=== PATIENT | female | born 1955 | race Caucasian/White ===

== ENCOUNTER 2021-02-26 14:32 | Observation (INO) | payer BC ==
[~2021-02-26] VITALS: Ht 160 cm; Wt 81.0 kg
[2021-02-26] MEDS ORDERED: IV NORMAL SALINE 1000ML BAG 1,000 ML IV ONE (15:00)
--- NOTE | 2021-02-26 15:09 | PHYS DOC ---
General Adult EDM: Chief Complaint: DIZZY/LIGHT HEADED HPI: HPI: Patient is a 65 year old female who presents with for last 2 weeks she has been having intermittent dizziness. She states she could be doing anything and she will do so may get dizzy and feel like she is spinning. She denies shortness of breath, chest pain, syncope, abdominal pain, nausea, vomiting, diarrhea, fever, numbness or tingling, focal weakness, recent illness. Patient is a smoker. She has been vaccinated for Covid. She states she takes no medications daily. She has had a cholecystectomy. She states she has not ate any food today because she has not been hungry. She was at work at [employer] before coming here to the hospital. Review of Systems: Review of Systems: Constitutional: Denies fever or chills. [] Eyes: Denies change in visual acuity. [] HENT: Denies nasal congestion or sore throat. [] Respiratory: Denies cough or shortness of breath. [] Cardiovascular: Denies chest pain or edema. [] GI: Denies abdominal pain, nausea, vomiting, bloody stools or diarrhea. [] : Denies dysuria. [] Musculoskeletal: Denies back pain or joint pain. [] Integument: Denies rash. [] Neurologic: + Intermittent headache, denies focal weakness or sensory changes. + Dizziness [] Endocrine: Denies polyuria or polydipsia. [] Lymphatic: Denies swollen glands. [] Psychiatric: Denies depression or anxiety. [] Heart Score: C/O Chest Pain: No Risk Factors: Risk Factors: DM, Current or recent (<one month) smoker, HTN, HLP, family history of CAD, obesity. Risk Scores: Score 0 - 3: 2.5% MACE over next 6 weeks - Discharge Home Score 4 - 6: 20.3% MACE over next 6 weeks - Admit for Clinical Observation Score 7 - 10: 72.7% MACE over next 6 weeks - Early Invasive Strategies Current Medications: Current Medications Medications (Trade) Dose Ordered Sig/[place] Start Time Stop Time Status Last Admin Dose Admin Sodium Chloride 1,000 ml @ 1,000 mls/hr 1X ONCE 02/26/21 15:00 02/26/21 15:59 UNV Physical Exam: PE: Constitutional: Well developed, well nourished, no acute distress, non-toxic appearance. [] HENT: Normocephalic, atraumatic, bilateral external ears normal, oropharynx moist, no oral exudates, nose normal. [] Eyes: PERRLA, EOMI, conjunctiva normal, no discharge. [] Neck: Normal range of motion, no tenderness, supple, no stridor. [] Cardiovascular:Heart rate regular rhythm, no murmur [] Lungs & Thorax: Bilateral breath sounds clear to auscultation [] Abdomen: Bowel sounds normal, soft, no tenderness, no masses, no pulsatile masses. [] Skin: Warm, dry, no erythema, no rash. [] Back: No tenderness, no CVA tenderness. [] Extremities: No tenderness, no cyanosis, no clubbing, ROM intact, no edema. [] Neurologic: Alert and oriented X 3, normal motor function, normal sensory function, no focal deficits noted. [] Psychologic: Affect normal, judgement normal, mood normal. [] Normal physical exam EKG: EK read by Dr. Abarca is sinus rhythm and no STEMI [] Radiology/Procedures: Radiology/Procedures: [] Impression: [address] [address] IMAGING REPORT Signed PATIENT: REYES ZAMBRANO ACCOUNT: [id number] : 1955 LOCATION: ER AGE: 65 SEX: F EXAM STATUS: PRE ER ORD. PHYSICIAN: ZENON LYONS APRN REASON: dizziness PROCEDURE: PORTABLE CHEST 1V XR CHEST 1V INDICATION: dizziness . COMPARISON STUDY: None. FINDINGS: Lungs: Normal lung volume. No pulmonary mass or consolidation. The tracheo bronchial tree and hilar structures are normal. Pleura: No pleural effusion or pneumothorax. Heart and Mediastinum: Cardiomegaly. Atherosclerosis of the thoracic aorta. IMPRESSION: No consolidation. Electronically signed by: Michael Ledesma MD (02/26/2021 3:18 PM) [facility] DICTATED and SIGNED BY: MICHAEL LEDESMA MD DATE: 02/26/21 [id number] [address] IMAGING REPORT Signed PATIENT: REYES ZAMBRANO ACCOUNT: [id number] : 1955 LOCATION: ER AGE: 65 SEX: F EXAM STATUS: PRE ER ORD. PHYSICIAN: ZENON LYONS APRN REASON: dizziness x few weeks, worst today PROCEDURE: CT HEAD WO CONTRAST CT scan of the head without contrast 02/26/2021 Clinical History: Dizziness for several weeks worsening today Technique: Unenhanced, contiguous, 5 mm axial sections were obtained through the head. One or more of the following individualized dose reduction techniques were utilized for this study: 1. Automated exposure control. 2. Adjustment of the mA and/or kV according to patient size. 3. Use of iterative reconstruction technique. Findings: No previous studies are available for comparison. There is generalized parenchymal atrophy. Areas of decreased attenuation are seen within the periventricular and subcortical white matter of both cerebral hemispheres consistent with areas of small vessel ischemic disease. An old appearing area of infarction is seen involving the right occipital lobe. This measures 3.5 cm in size. No acute parenchymal abnormality is seen. No extra- axial fluid collection is noted. No skull fracture is seen. Impression: 1. 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 2. No acute intracranial abnormality is seen. Electronically signed by: Jitendra Canchola MD (02/26/2021 3:33 PM) [id number] DICTATED and SIGNED BY: JITENDRA CANCHOLA MD DATE: 02/26/21 [id number] 0 Course & Med Decision Making: Course & Med Decision Making Pertinent Labs and Imaging studies reviewed. (See chart for details) See HPI. Alert and oriented x4. Ambulatory steady gait. Speaks in full clear sentences. Skin pink warm and dry. Patient currently does not have a primary care provider. She states she just got her insurance back. Orthostatic: Lying 168/77, heart rate 79; sitting 179/84, heart rate 80; standing 148/79, heart rate 84. Patient is given a liter of normal saline in the ED. Moving all extremities. Finger nose finger intact. D-dimer is elevated. CT showed a old infarct. Chest x-ray clear. Patient got up to walk to the bathroom and she stumbled a bit. She states that she was not dizzy at that time. Patient's daughter states that she has not been acting right for the last 2 months and work has been saying that she suddenly stopped wearing make-up and was becoming very forgetful and not acting herself and then when they said something to her she began wearing make-up and that she stopped again but states that she has been having these dizzy spells and just not acting correctly for herself. [] Dragon Disclaimer: Dragon Disclaimer: This electronic medical record was generated, in whole or in part, using a voice recognition dictation system. NIHSS Stroke Scale NIH Stroke Scale: NIH Stroke Scale Response (Comments) Value Level of Consciousness: 0 Alert/Responsive 0 LOC Questions: 0 Answers both correctly 0 LOC Commands: 0 Performs both tasks 0 Best Gaze: 0 Normal 0 Visual: 0 No visual loss 0 Facial Palsy: 0 Normal, symmetrical 0 Motor - Left Arm 0 No drift 0 Motor - Right Arm 0 No drift 0 Motor - Left Leg 0 No drift 0 Motor: Right Leg 0 No drift 0 Limb Ataxia: 0 Absent 0 Sensory: 0 No loss 0 Best Language: 0 Normal 0 Dysathria: 0 Normal 0 Extinction and Inattention: 0 Normal 0 Total 0 Departure Departure Impression: Primary Impression: Dizziness Disposition: ADMITTED INPATIENT Admitting Physician: JENNIFER Condition: STABLE ZENON LYONS APRN Feb 26, 2021 15:09
[2021-02-26 15:12] LABS: BASO # 0.1 x10^3/uL (0.0-0.2); BASO % 1 % (0-3); EOS # 0.3 x10^3/uL (0.0-0.7); EOS % 6 % (0-3); HEMATOCRIT 30.7 % (36.0-47.0); HEMOGLOBIN 10.1 g/dL (12.0-15.5); LYMPH % 17 % (24-48); MEAN CORPUSCULAR HEMOGLOBIN 24 pg (25-35); MEAN CORPUSCULAR HGB CONC 33 g/dL (31-37); MEAN CORPUSCULAR VOLUME 72 fL (79-100); MONO # 0.4 x10^3/uL (0.0-1.1); MONO % 8 % (0-9); NEUT # 3.9 x10^3/uL (1.8-7.7); NEUT % 69 % (31-73); PLATELET COUNT 442 x10^3/uL (140-400); RED BLOOD COUNT 4.27 x10^6/uL (3.50-5.40); RED CELL DISTRIBUTION WIDTH 19.7 % (11.5-14.5); WHITE BLOOD COUNT 5.7 x10^3/uL (4.0-11.0)
--- NOTE | 2021-02-26 15:21 | RAD ---
XR CHEST 1V INDICATION: dizziness . COMPARISON STUDY: None. FINDINGS: Lungs: Normal lung volume. No pulmonary mass or consolidation. The tracheobronchial tree and hilar st ructures are normal. Pleura: No pleural effusion or pneumothorax. Heart and Mediastinum: Cardiomegaly. Atherosclerosis of the thoracic aorta. IMPRESSION: No consolidation. Electronically signed by: Bennett Ledesma MD (02/26/2021 3:18 PM) [facility]
[2021-02-26 15:23] LABS: CALCIUM 8.8 mg/dL (8.5-10.1); CREATININE 1.2 mg/dL (0.6-1.0); GFR 45.1; POTASSIUM 3.9 mmol/L (3.5-5.1)
[2021-02-26 15:29] LABS: ALBUMIN 3.6 g/dL (3.4-5.0); MAGNESIUM 2.2 mg/dL (1.8-2.4); TOTAL BILIRUBIN 0.4 mg/dL (0.2-1.0); TOTAL PROTEIN 7.3 g/dL (6.4-8.2)
--- NOTE | 2021-02-26 15:35 | RAD ---
CT scan of the head without contrast 02/26/2021 Clinical History: Dizziness for several weeks worsening today Technique: Unenhanced, contiguous, 5 mm axial sections were obtained through the head. One or more of the following individualized dose reduction techniques were utilized for this study: 1. Automated exposure control. 2. Adjustment of the mA and/or kV according to patient size. 3. Use of iterative reconstruction technique. Findings: No previous studies are available for comparison. There is generalized parenchymal atrophy. Areas of decreased attenuation are seen within the perivent ricular and subcortical white matter of both cerebral hemispheres consistent with areas of small vess el ischemic disease. An old appearing area of infarction is seen involving the right occipital lobe. This measures 3.5 cm in size. No acute parenchymal abnormality is seen. No extra-axial fluid collecti on is noted. No skull fracture is seen. Impression: 1. 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 2. No acute intracranial abnormality is seen. Electronically signed by: Jitendra Canchola MD (02/26/2021 3:33 PM) [id number]
[2021-02-26 16:18] LABS: ANISOCYTOSIS SLIGHT; HYPOCHROMIA SLIGHT; MICROCYTOSIS MOD; PLT ESTIMATE INCREASED (ADEQUATE)
--- NOTE | 2021-02-26 16:42 | EKG ---
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
--- NOTE | 2021-02-26 17:25 | PDOC1 ---
History and Physical Date of Service: DOS: DATE: 02/26/21 TIME: 17:25 Chief Complaint: Problems: (1) High blood pressure (2) Dizziness Chief Complain: Dizziness History of Present Illness: HPI: Patient is a 65-year-old female presented here today with her daughter with a several month history of dizziness. Patient was at her job at [employer] where she has worked for several years when patient's daughter was contacted by the patient's coworkers due to her complaining of feeling dizzy and lightheaded. Family member thought this was one of the first times this occurred however upon discussing with the patient's coworkers the reported she complains of this multiple times a week for the past 1 to 2 months. Patient reports that the only thing she could pinpoint to her dizziness is that it "might occur when I bend down to pick something up." Other than that she cannot elaborate much else. Patient's coworkers also have noted she will sometimes come to work appearing very unkempt. Patient denies any associated symptoms with the dizziness. She did have 1 urinary incontinence episode a few weeks ago at work. Incidentally around the time patient's symptoms started her ex- suddenly . She reported family members she is not troubled by this. Patient denies any medical history or daily medications but also has not seen a physician in several years. On arrival to emergency room patient notably hypertensive. 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 Labs notable for mild ALESHIA. No troponin elevation, EKG appears normal. Admit Past Medical/Surgical History: PMH/PSH: Denies any past medical history Had a foot surgery very many years ago Allergies: Allergies: Coded Allergies: codeine (Verified Allergy, Unknown, 02/26/21) CHEST PAIN Family History: Family History: Reports hypertension and diabetes run in her family Social History: Social History: Daily smoker approximately 1 pack/day for several decades; denies alcohol drug use Current Medications: Current Medications Current Medications Sodium Chloride 1,000 ml @ 1,000 mls/hr 1X ONCE IV Last administered on 02/26/21at 15:11; Start 02/26/21 at 15:00; Stop 02/26/21 at 15:59; Status DC Iohexol (Omnipaque 350 Mg/ml) 80 ml 1X ONCE IV ; Start 02/26/21 at 17:30; Stop 02/26/21 at 17:31 ROS: Review of Systems Review of System Negative unless noted in HPI Physical Exam: Vital Signs: Vital Signs Date Time Temp Pulse Resp B/P (MAP) Pulse Ox O2 Delivery O2 Flow Rate FiO2 02/26/21 16:29 81 162/79 (106) 97 Room Air 02/26/21 14:39 98.8 12 98.8 Physcial Exam: GEN: No apparent distress. Alert and oriented HEENT: Normal cephalic, atraumatic, external auditory canals are patent EYES: Extraocular muscles are intact, pupil are equally round and reactive to light and accommodation MUSCULOSKELETAL: Well developed , well nourished, good range of motion ENDOCRINE: No thyromegaly was palpated LYMPHATICS: No cervical chain or axillary nodes were noted HEMATOPOIETIC: No bruising NECK: Supple, no JVD, no thyromegaly was noted LUNGS: Clear to auscultation in all lung leung without rhonchi or wheezing HEART: RRR, S!, S2 present. Peripheral pulses intact, no obvious murmurs noted ABDOMEN: Soft, nontender. Positive bowel sounds, no organomegaly, normal bowel sounds EXTREMITIES: Without clubbing, cyanosis, or edema. Pedal pulses intact. NEUROLOGIC: Normal speech and tone. A&O x 3, moves all extremities, no obvious focal deficits PSYCHIATRIC: Normal affect, normal mood. Stable SKIN: No ulcerations or rashes, good skin turgor, no jaundice VASCULAR: Good capillary refill, neurovascular bundle appears to be intact Labs: Labs: Laboratory Tests Test 02/26/21 15:03 02/26/21 15:49 White Blood Count 5.7 x10^3/uL (4.0-11.0) Red Blood Count 4.27 x10^6/uL (3.50-5.40) Hemoglobin 10.1 g/dL (12.0-15.5) Hematocrit 30.7 % (36.0-47.0) Mean Corpuscular Volume 72 fL (79-100) Mean Corpuscular Hemoglobin 24 pg (25-35) Mean Corpuscular Hemoglobin Concent 33 g/dL (31-37) Red Cell Distribution Width 19.7 % (11.5-14.5) Platelet Count 442 x10^3/uL (140-400) Neutrophils (%) (Auto) 69 % (31-73) Lymphocytes (%) (Auto) 17 % (24-48) Monocytes (%) (Auto) 8 % (0-9) Eosinophils (%) (Auto) 6 % (0-3) Basophils (%) (Auto) 1 % (0-3) Neutrophils # (Auto) 3.9 x10^3/uL (1.8-7.7) Lymphocytes # (Auto) 1.0 x10^3/uL (1.0-4.8) Monocytes # (Auto) 0.4 x10^3/uL (0.0-1.1) Eosinophils # (Auto) 0.3 x10^3/uL (0.0-0.7) Basophils # (Auto) 0.1 x10^3/uL (0.0-0.2) Platelet Estimate Increased (ADEQUATE) Hypochromasia Slight Anisocytosis Slight Microcytosis Mod Sodium Level 143 mmol/L (136-145) Potassium Level 3.9 mmol/L (3.5-5.1) Chloride Level 104 mmol/L (98-107) Carbon Dioxide Level 29 mmol/L (21-32) Anion Gap 10 (6-14) Blood Urea Nitrogen 16 mg/dL (7-20) Creatinine 1.2 mg/dL (0.6-1.0) Estimated GFR (Cockcroft-Gault) 45.1 BUN/Creatinine Ratio 13 (6-20) Glucose Level 98 mg/dL (70-99) Calcium Level 8.8 mg/dL (8.5-10.1) Magnesium Level 2.2 mg/dL (1.8-2.4) Total Bilirubin 0.4 mg/dL (0.2-1.0) Aspartate Amino Transf (AST/SGOT) 16 U/L (15-37) Alanine Aminotransferase (ALT/SGPT) 19 U/L (14-59) Alkaline Phosphatase 89 U/L (46-116) Troponin I Quantitative < 0.017 ng/mL (0.000-0.055) KV-Lne-Y-Type Natriuretic Peptide 302 pg/mL (0-124) Total Protein 7.3 g/dL (6.4-8.2) Albumin 3.6 g/dL (3.4-5.0) Albumin/Globulin Ratio 1.0 (1.0-1.7) D-Dimer (Madai) 0.59 ug/mlFEU (0.00-0.50) Laboratory Tests Test 02/26/21 15:03 02/26/21 15:49 White Blood Count 5.7 x10^3/uL (4.0-11.0) Red Blood Count 4.27 x10^6/uL (3.50-5.40) Hemoglobin 10.1 g/dL (12.0-15.5) Hematocrit 30.7 % (36.0-47.0) Mean Corpuscular Volume 72 fL (79-100) Mean Corpuscular Hemoglobin 24 pg (25-35) Mean Corpuscular Hemoglobin Concent 33 g/dL (31-37) Red Cell Distribution Width 19.7 % (11.5-14.5) Platelet Count 442 x10^3/uL (140-400) Neutrophils (%) (Auto) 69 % (31-73) Lymphocytes (%) (Auto) 17 % (24-48) Monocytes (%) (Auto) 8 % (0-9) Eosinophils (%) (Auto) 6 % (0-3) Basophils (%) (Auto) 1 % (0-3) Neutrophils # (Auto) 3.9 x10^3/uL (1.8-7.7) Lymphocytes # (Auto) 1.0 x10^3/uL (1.0-4.8) Monocytes # (Auto) 0.4 x10^3/uL (0.0-1.1) Eosinophils # (Auto) 0.3 x10^3/uL (0.0-0.7) Basophils # (Auto) 0.1 x10^3/uL (0.0-0.2) Platelet Estimate Increased (ADEQUATE) Hypochromasia Slight Anisocytosis Slight Microcytosis Mod Sodium Level 143 mmol/L (136-145) Potassium Level 3.9 mmol/L (3.5-5.1) Chloride Level 104 mmol/L (98-107) Carbon Dioxide Level 29 mmol/L (21-32) Anion Gap 10 (6-14) Blood Urea Nitrogen 16 mg/dL (7-20) Creatinine 1.2 mg/dL (0.6-1.0) Estimated GFR (Cockcroft-Gault) 45.1 BUN/Creatinine Ratio 13 (6-20) Glucose Level 98 mg/dL (70-99) Calcium Level 8.8 mg/dL (8.5-10.1) Magnesium Level 2.2 mg/dL (1.8-2.4) Total Bilirubin 0.4 mg/dL (0.2-1.0) Aspartate Amino Transf (AST/SGOT) 16 U/L (15-37) Alanine Aminotransferase (ALT/SGPT) 19 U/L (14-59) Alkaline Phosphatase 89 U/L (46-116) Troponin I Quantitative < 0.017 ng/mL (0.000-0.055) DB-Njg-L-Type Natriuretic Peptide 302 pg/mL (0-124) Total Protein 7.3 g/dL (6.4-8.2) Albumin 3.6 g/dL (3.4-5.0) Albumin/Globulin Ratio 1.0 (1.0-1.7) D-Dimer (Madai) 0.59 ug/mlFEU (0.00-0.50) Assessment/Plan Assessment/Plan Dizziness without syncope, hypertension -Patient with several month history of intermittent dizzy episodes. Unable to identify what brings them on or improves then. -Denies any past medical history -On arrival to the emergency room notably hypertensive; will try one-time dose of amlodipine to see how patient responds -Chest x-ray normal, head CT showed old infarct, CT chest ruled out pulmonary embolism -Patient does not appear fluid overloaded on exam -Echo ordered, cardiology consulted for evaluation -Urinalysis to evaluate for UTI given episodes of altered mental status and urinary incontinence -DVT prophylaxis -Diet -No home meds to resume Justifications for Admission Other Justification DANNIE SIMENTAL MD Feb 26, 2021 17:25
[2021-02-26] MEDS ORDERED: IOHEXOL 350 MG/ML 100 ML VIAL. IV ONE (17:30)
[2021-02-26] MEDS ORDERED: ACETAMINOPHEN 325 MG TABLET. PO PRN ×2 (17:45→18:00)
[2021-02-26] MEDS ORDERED: ELECTROLYTE (NON-ICU) PROTOCOL. MC PRN (18:00)
[2021-02-26] MEDS ORDERED: ZOLPIDEM 5 MG TABLET. PO PRN (18:00)
[2021-02-26] MEDS ORDERED: ONDANSETRON PF 4 MG/2 ML VIAL. IVP PRN (18:00)
[2021-02-26] MEDS ORDERED: oxyCODONE/APAP 5/325 1 TAB TABLET PO PRN ×2 (18:00)
[2021-02-26] MEDS ORDERED: CALCIUM CARBONATE 500 MG TAB.CHEW PO PRN (18:00)
--- NOTE | 2021-02-26 18:13 | RAD ---
Exam: CT of chest with contrast INDICATION: Dizziness, elevated d-dimer TECHNIQUE: Sequential axial images through the chest obtained following the administration of 80 mL o f Isovue-370 IV contrast. Sagittal and coronal reformatted images were reconstructed from the axial d kingsley and reviewed. 3-D reformatted images were reconstructed from the axial data and reviewed. Exposure: One or more of the following in the visualized dose reduction techniques were utilized for this examination: 1. Automated exposure control 2. Adjustment of the MA and/or KV according to patient size 3. Use of iterative of reconstructive technique Comparisons: Chest x-ray 02/26/2021 FINDINGS: Visualized portions of the thyroid are unremarkable. No enlarged mediastinal lymph nodes are identifi ed. Heart size is normal. No pericardial effusion. Thoracic aorta has a normal course and caliber. Mild c oronary artery calcium lesions. Pulmonary artery is not enlarged. No pulmonary embolus identified wit hin the main or lobar pulmonary arteries. Evaluation distally is limited secondary to contrast bolus timing. Airways are patent. No consolidation or pneumothorax. No suspicious lung nodules. No pleural effusion or thickening. Visualized upper abdomen is unremarkable. Small hiatal hernia. No suspicious osseous lesions or acute fractures. IMPRESSION: No pulmonary embolus identified in the main or lobar pulmonary arteries. Limitations as described abo ve. Electronically signed by: Tab Espinoza MD (02/26/2021 6:10 PM) [facility]
[2021-02-26 19:11] LABS: CHOLESTEROL/HDL RATIO 4.8
[2021-02-26 19:13] VITALS: BP 156/72
[2021-02-26] MEDS: SENNOSIDES/DOCUSATE 8.6/50MG TABLET. PO SCH (21:06)
[2021-02-26] MEDS: HEPARIN for SUB-Q USE 5,000 UNIT/ML VIAL. SQ SCH (21:10)
[2021-02-26 22:40] VITALS: BP 144/71
--- NOTE | 2021-02-26 22:43 | NUR ---
ER hold until bed becomes available for admit to the floor. A/O x 4. Forgetful. Pleasant. Cooperative. Resting in room 17 on ER [facility]. Offered hospital bed but patient declines at this time. Call light at hand. Admit orders on chart and followed as instructed.
[2021-02-27 03:01] VITALS: BP 154/67
[2021-02-27 06:59] LABS: BARBITURATES NEG (NEG); BENZODIAZEPINES NEG (NEG); CANNABINOIDS NEG (NEG); COCAINE NEG (NEG); METHADONE NEG (NEG); OPIATES NEG (NEG); PHENCYCLIDINE NEG (NEG)
[2021-02-27 07:00] VITALS: BP 145/67
[2021-02-27 07:04] LABS: BILIRUBIN,URINE NEGATIVE (NEG); CLARITY,URINE CLEAR; COLOR,URINE YELLOW; NITRITE,URINE NEGATIVE (NEG); PH,URINE 7.5 (<5.0-8.0); PROTEIN,URINE NEGATIVE (NEG-TRACE); UROBILINOGEN,URINE 0.2 mg/dL (0.2 mg/dL)
[2021-02-27 07:05] LABS: AMPHETAMINE/METHAMPHETAMINE POS (NEG)
[2021-02-27 07:15] LABS: BACTERIA,URINE FEW /HPF (0-FEW); RBC,URINE 0 /HPF (0-2)
[2021-02-27] MEDS: HEPARIN for SUB-Q USE 5,000 UNIT/ML VIAL. SQ SCH ×3 (07:15→22:40)
[2021-02-27] MEDS ORDERED: PERFLUTREN PROTEIN-A MICROSPHR 0.22 MG/ML 3 ML VIAL. IV ONE ×2 (07:44→08:00)
[2021-02-27] MEDS: SENNOSIDES/DOCUSATE 8.6/50MG TABLET. PO SCH ×2 (09:00→22:36)
--- NOTE | 2021-02-27 10:37 | PDOC2 ---
KRISTINA CONTRERAS MIGRANT LEADER 02/27/21 1037: CARDIAC CONSULT DATE OF CONSULT Date of Consult DATE: 02/27/21 TIME: 10:30 REASON FOR CONSULT Reason for Consult: Dizziness, near syncope REFERRING PHYSICIAN Referring Physician: Dr. Krishnamurthy SOURCE Source: Chart review, Patient HISTORY OF PRESENT ILLNESS HISTORY OF PRESENT ILLNESS This is a 65 yo female who presented secondary to intermittent dizziness for the last couple of weeks. Has occurred with position changes, bending over, and also at rest. Reports symptoms begin in her eyes. Feels as if the room is spinning. No syncopal episodes. Usually resolved without intervention. No associated chest pain, shortness of breath, diaphoresis, or nausea/vomiting. No history of hypertension or hypothyroidism reported, although does not routinely go to the doctor. UDS + for methamphetamines. Denies any meth use. Reports occasional marijuana use but has not used in 1 month. Granddaughter and grandson live with her and she reports that they use methamphetamines. Per ED records, daughter reports that patient has not been acting her usual self for the last 2 months. PAST MEDICAL HISTORY CENTRAL NERVOUS SYSTEM: CVA (new this admission per CT head ) Musculoskeletal: Osteoarthritis PAST SURGICAL HISTORY Past Surgical History: Cholecystectomy FAMILY HISTORY Family History: Diabetes, Heart Disease SOCIAL HISTORY Smoke: <1 pack per day ALCOHOL: rare Drugs: Marijuana, Other (UDS + methamphetamines ) Lives: with Family CURRENT MEDICATIONS CURRENT MEDICATIONS Current Medications Medications (Trade) Dose Ordered Sig/[place] Route PRN Reason Start Time Stop Time Status Last Admin Dose Admin Sodium Chloride 1,000 ml @ 1,000 mls/hr 1X ONCE IV 02/26/21 15:00 02/26/21 15:59 DC 02/26/21 15:11 Iohexol (Omnipaque 350 Mg/ml) 80 ml 1X ONCE IV 02/26/21 17:30 02/26/21 17:31 DC 02/26/21 17:44 Amlodipine Besylate (Norvasc) 5 mg 1X ONCE PO 02/26/21 17:30 02/26/21 17:32 DC 02/26/21 18:24 Senna/Docusate Sodium (Senna Plus) 1 tab BID PO 02/26/21 21:00 02/26/21 21:06 Heparin Sodium (Porcine) (Heparin Sodium) 5,000 unit Q8HRS SQ 02/26/21 22:00 02/27/21 07:15 ALLERGIES ALLERGIES: Coded Allergies: codeine (Verified Allergy, Unknown, 02/26/21) CHEST PAIN ROS Review of System 14 point ROS conducted with pertinent positives noted above in HPI PHYSICAL EXAM General: Alert, Oriented X3, Cooperative, No acute distress HEENT: Atraumatic Lungs: Other (diminished bases) Heart: Regular rate Abdomen: Soft Extremities: No edema, Normal pulses Skin: No significant lesion Neuro: Normal speech, Sensation intact Psych/Mental Status: Mental status NL, Mood NL MUSCULOSKELETAL: Osteoarthritic changes both hands VITALS/I&O VITALS/I&O: Vital Signs Date Time Temp Pulse Resp B/P (MAP) Pulse Ox O2 Delivery O2 Flow Rate FiO2 02/27/21 08:00 Room Air 02/27/21 07:00 98.3 85 20 145/67 (93) 95 98.3 I & O 02/26/21 02/26/21 02/27/21 15:00 23:00 07:00 Intake Total 180 ml 100 ml Output Total 1150 ml 1000 ml Balance -970 ml -900 ml LABS Lab: Laboratory Tests Test 02/26/21 15:03 02/26/21 15:49 02/27/21 06:40 02/27/21 07:00 White Blood Count 5.7 x10^3/uL (4.0-11.0) Red Blood Count 4.27 x10^6/uL (3.50-5.40) Hemoglobin 10.1 g/dL (12.0-15.5) L Hematocrit 30.7 % (36.0-47.0) L Mean Corpuscular Volume 72 fL (79-100) L Mean Corpuscular Hemoglobin 24 pg (25-35) L Mean Corpuscular Hemoglobin Concent 33 g/dL (31-37) Red Cell Distribution Width 19.7 % (11.5-14.5) H Platelet Count 442 x10^3/uL (140-400) H Neutrophils (%) (Auto) 69 % (31-73) Lymphocytes (%) (Auto) 17 % (24-48) L Monocytes (%) (Auto) 8 % (0-9) Eosinophils (%) (Auto) 6 % (0-3) H Basophils (%) (Auto) 1 % (0-3) Neutrophils # (Auto) 3.9 x10^3/uL (1.8-7.7) Lymphocytes # (Auto) 1.0 x10^3/uL (1.0-4.8) Monocytes # (Auto) 0.4 x10^3/uL (0.0-1.1) Eosinophils # (Auto) 0.3 x10^3/uL (0.0-0.7) Basophils # (Auto) 0.1 x10^3/uL (0.0-0.2) Platelet Estimate Increased (ADEQUATE) Hypochromasia Slight Anisocytosis Slight Microcytosis Mod Sodium Level 143 mmol/L (136-145) Potassium Level 3.9 mmol/L (3.5-5.1) Chloride Level 104 mmol/L (98-107) Carbon Dioxide Level 29 mmol/L (21-32) Anion Gap 10 (6-14) Blood Urea Nitrogen 16 mg/dL (7-20) Creatinine 1.2 mg/dL (0.6-1.0) H Estimated GFR (Cockcroft-Gault) 45.1 BUN/Creatinine Ratio 13 (6-20) Glucose Level 98 mg/dL (70-99) Calcium Level 8.8 mg/dL (8.5-10.1) Magnesium Level 2.2 mg/dL (1.8-2.4) Iron Level 21 ug/dL (50-170) L Total Iron Binding Capacity 438 ug/dL (250-450) Iron Saturation 5 % (15-34) L Total Bilirubin 0.4 mg/dL (0.2-1.0) Aspartate Amino Transferase (AST) 16 U/L (15-37) Alanine Aminotransferase (ALT) 19 U/L (14-59) Alkaline Phosphatase 89 U/L (46-116) Troponin I Quantitative < 0.017 ng/mL (0.000-0.055) HV-Ymg-L-Type Natriuretic Peptide 302 pg/mL (0-124) H Total Protein 7.3 g/dL (6.4-8.2) Albumin 3.6 g/dL (3.4-5.0) Albumin/Globulin Ratio 1.0 (1.0-1.7) Triglycerides Level 73 mg/dL (0-150) Cholesterol Level 236 mg/dL (0-200) H LDL Cholesterol, Calculated 172 mg/dL (0-100) H VLDL Cholesterol, Calculated 15 mg/dL (0-40) Non-HDL Cholesterol Calculated 187 mg/dL (0-129) H HDL Cholesterol 49 mg/dL (40-60) Cholesterol/HDL Ratio 4.8 Thyroid Stimulating Hormone (TSH) 50.860 uIU/mL (0.358-3.74) H D-Dimer (Madai) 0.59 ug/mlFEU (0.00-0.50) H Urine Collection Type Unknown Urine Color Yellow Urine Clarity Clear Urine pH 7.5 (<5.0-8.0) Urine Specific [place] 1.010 (1.000-1.030) Urine Protein Negative mg/dL (NEG-TRACE) Urine Glucose (UA) Negative mg/dL (NEG) Urine Ketones (Stick) Negative mg/dL (NEG) Urine Blood Negative (NEG) Urine Nitrite Negative (NEG) Urine Bilirubin Negative (NEG) Urine Urobilinogen Dipstick 0.2 mg/dL (0.2 mg/dL) Urine Leukocyte Esterase Negative (NEG) Urine RBC 0 /HPF (0-2) Urine WBC 1-4 /HPF (0-4) Urine Squamous Epithelial Cells Mod /LPF Urine Bacteria Few /HPF (0-FEW) Urine Opiates Screen Neg (NEG) Urine Methadone Screen Neg (NEG) Urine Barbiturates Neg (NEG) Urine Phencyclidine Screen Neg (NEG) Urine Amphetamine/Methamphetamine Pos (NEG) Urine Benzodiazepines Screen Neg (NEG) Urine Cocaine Screen Neg (NEG) Urine Cannabinoids Screen Neg (NEG) Urine Ethyl Alcohol Neg (NEG) SARS-CoV-2 Antigen (Rapid) Negative (NEGATIVE) Test 02/27/21 08:55 Ferritin 7 ng/mL (8-252) L Free Thyroxine 0.60 ng/dL (0.76-1.46) L Laboratory Tests 02/26/21 15:03 Laboratory Tests 02/26/21 15:03 ASSESSMENT/PLAN ASSESSMENT/PLAN 1. Dizziness, near syncope; CT head with old infarct. No acute findings. No acute event on tele thus far. Mild orthostasis noted. S/p IVFs 2. Accelerated hypertension; better controlled 3. Hyperlipidemia; LDL 172 4. Hypothyroidism; TSH 50. new finding 5. ALESHIA vs CKD 6. PUI: Rapid negative. PCR pending. Fully vaccinated 7. UDS + methamphetamines; denies use. No home meds 8. Tobaccoism; discussed/encouraged cessation 9. Elevated d-dimer; chest CTA negative for PE Recommendations Start secondary prevention; ASA/statin therapy Add amlodipine for BP control Hydralazine IV PRN Echo pending Repeat orthos. Could consider event monitor, but suspicion for contributing arrhythmias is low. Supportive care RAND HALL MD 02/28/21 0836: CARDIAC CONSULT ASSESSMENT/PLAN ASSESSMENT/PLAN Late entry for 02/27/2021 Pt. seen and examined. Agree with above PRIMARY CARE PHYSICIAN note. Supportive care. KRISTINA CONTRERAS APRN Feb 27, 2021 10:37 RAND HALL MD Feb 28, 2021 08:36
[2021-02-27] MEDS: LEVOTHYROXINE 112 MCG TABLET PO SCH (12:21)
[2021-02-27] MEDS ORDERED: hydrALAZINE 20 MG/ML VIAL. IVP PRN (13:45)
--- NOTE | 2021-02-27 14:27 | PDOC2 ---
NEUROLOGY CONSULT Date of Service DOS: DATE: 02/27/21 TIME: 14:19 Reason for Consult Reason for Consult: Dizziness and confusion Referring Physician Referring Physician: Dr. Jha Source Source: Chart review, Patient History of Present Illness History of Present Illness The patient is a 65-year-old right-handed female with several months of dizziness. She was at her job at [employer] yesterday when coworkers contacted the daughter. Patient was dizzy and lighthead. She complains that the room is moving around her. She also has felt confused. Her boss has told her that she is not as sharp as she was. Patient's ex- about 2 months ago, and the symptoms actually started then. In addition the patient describes migraine headaches about twice a week with throbbing pain and photo phonophobia, not associated with the dizziness. Patient was hypertensive in the emergency department and labs are notable for mild acute kidney injury. Patient denies any history of stroke, seizure, head injury, diplopia, dysphagia, dysarthria, tinnitus, hearing loss, focal numbness, or weakness Past Medical History Cardiovascular: HTN CENTRAL NERVOUS SYSTEM: Migraine Musculoskeletal: Osteoarthritis, Other (Foot fractures) Renal/: Urinary Incontinence Past Surgical History Past Surgical History: No pertinent history Family History Family History: CAD, Hypertension, Other (Alcoholism) Social History Social History Her ex- only as described above. She smokes less than a pack of cigarettes per day, rare alcohol, works at [employer] Current Medications Current Medications Current Medications Sodium Chloride 1,000 ml @ 1,000 mls/hr 1X ONCE IV Last administered on 02/26/21at 15:11; Start 02/26/21 at 15:00; Stop 02/26/21 at 15:59; Status DC Iohexol (Omnipaque 350 Mg/ml) 80 ml 1X ONCE IV Last administered on 02/26/21at 17:44; Start 02/26/21 at 17:30; Stop 02/26/21 at 17:31; Status DC Amlodipine Besylate (Norvasc) 5 mg 1X ONCE PO Last administered on 02/26/21at 18:24; Start 02/26/21 at 17:30; Stop 02/26/21 at 17:32; Status DC Acetaminophen (Tylenol) 650 mg PRN Q4HRS PRN PO FEVER > 100.3'F; Start 02/26/21 at 17:45; Stop 02/27/21 at 17:44 Ondansetron HCl (Zofran) 4 mg PRN Q6HRS PRN IVP NAUSEA/VOMITING; Start 02/26/21 at 18:00 Calcium Carbonate/ Glycine (Tums) 500 mg PRN Q3HRS PRN PO UPSET STOMACH; Start 02/26/21 at 18:00 Zolpidem Tartrate (Ambien) 5 mg PRN QHS PRN PO INSOMNIA, MAY REPEAT IN 1HR; Start 02/26/21 at 18:00 Info (Non-Icu Electrolyte Protocol) 1 ea PRN DAILY PRN MC SEE COMMENTS; Start 02/26/21 at 18:00 Oxycodone/ Acetaminophen (Percocet 5/325) 1 tab PRN Q4HRS PRN PO MILD PAIN, 1ST CHOICE; Start 02/26/21 at 18:00 Oxycodone/ Acetaminophen (Percocet 5/325) 2 tab PRN Q4HRS PRN PO MODERATE PAIN, SEVERE PAIN; Start 02/26/21 at 18:00 Acetaminophen (Tylenol) 650 mg PRN Q6HRS PRN PO Headaches, Temp > 101.5F; Start 02/26/21 at 18:00 Senna/Docusate Sodium (Senna Plus) 1 tab BID PO Last administered on 02/26/21at 21:06; Start 02/26/21 at 21:00 Heparin Sodium (Porcine) (Heparin Sodium) 5,000 unit Q8HRS SQ Last administered on 02/27/21at 07:15; Start 02/26/21 at 22:00 Perflutren Protein Type A Microsphe (Optison) 0.66 mg STK-MED ONCE IV ; Start 02/27/21 at 07:44; Stop 02/27/21 at 07:44; Status DC Levothyroxine Sodium (Synthroid) 112 mcg DAILY06 PO Last administered on 02/27/21at 12:21; Start 02/27/21 at 12:00 Amlodipine Besylate (Norvasc) 5 mg DAILY PO ; Start 02/27/21 at 14:00 Atorvastatin Calcium (Lipitor) 40 mg QHS PO ; Start 02/27/21 at 21:00 Aspirin (Ecotrin) 81 mg DAILYWBKFT PO ; Start 02/28/21 at 08:00 Hydralazine HCl (Apresoline Inj) 10 mg PRN Q4HRS PRN IVP ELEVATED BP, SEE COMMENTS; Start 02/27/21 at 13:45 Active Scripts Active Reported No Known Medications Prior To Admisstion (Info) Each 1 Each Allergies Allergies: Coded Allergies: codeine (Verified Allergy, Unknown, 02/26/21) CHEST PAIN ROS Review of System Negative for fever, chills, weight loss, shortness of breath, chest pain, indigestion, hematochezia, melena, and dysuria. Full 14-point review of systems is negative. Physical Exam Physical Examination General: Well-developed, well-nourished white female in no acute distress HEENT: Normocephalic andatraumatic. Tympanic membranes clear.Temporal arteriespulsatile and nontender. Neck: Supple without bruit, no meningismus Musculoskeletal: Stability:see neurologic. Gait exam:see neurologic. Tone:see neurologic.Strength:see neurologic. Neurological: Mental Status:intact, orientation, memory, attention span/concentration, language, fund of knowledge normal. Cranial Nerves:Pupils equal and reactive to light, extraocular movements areintact, visual leung are full to confrontation. Facial sensation is normal. There is no facial asymmetry. Vestibulo-ocular reflex is intact. No nystagmus provoked. Palate elevates and tongue protrudes in midline. All other cranial related problems are negative except as mentioned before.Reflexes:2+ and symmetric with flexor plantar responses. Motor:5/5 strength with normal tone and bulk. Coordination:Finger-n ose finger and mggr-gc-fnsk testing are normal. Rapid alternating movements and fine finger movements are intact. Gait:A little unsteady. Sensory:Normal pinprick, vibration, light touch, proprioception. Vitals VITALS Vital Signs Date Time Temp Pulse Resp B/P (MAP) Pulse Ox O2 Delivery O2 Flow Rate FiO2 02/27/21 08:00 Room Air 02/27/21 07:00 98.3 85 20 145/67 (93) 95 98.3 Labs Labs Laboratory Tests Test 02/26/21 15:03 02/26/21 15:49 02/27/21 06:40 02/27/21 07:00 White Blood Count 5.7 x10^3/uL (4.0-11.0) Red Blood Count 4.27 x10^6/uL (3.50-5.40) Hemoglobin 10.1 g/dL (12.0-15.5) Hematocrit 30.7 % (36.0-47.0) Mean Corpuscular Volume 72 fL (79-100) Mean Corpuscular Hemoglobin 24 pg (25-35) Mean Corpuscular Hemoglobin Concent 33 g/dL (31-37) Red Cell Distribution Width 19.7 % (11.5-14.5) Platelet Count 442 x10^3/uL (140-400) Neutrophils (%) (Auto) 69 % (31-73) Lymphocytes (%) (Auto) 17 % (24-48) Monocytes (%) (Auto) 8 % (0-9) Eosinophils (%) (Auto) 6 % (0-3) Basophils (%) (Auto) 1 % (0-3) Neutrophils # (Auto) 3.9 x10^3/uL (1.8-7.7) Lymphocytes # (Auto) 1.0 x10^3/uL (1.0-4.8) Monocytes # (Auto) 0.4 x10^3/uL (0.0-1.1) Eosinophils # (Auto) 0.3 x10^3/uL (0.0-0.7) Basophils # (Auto) 0.1 x10^3/uL (0.0-0.2) Platelet Estimate Increased (ADEQUATE) Hypochromasia Slight Anisocytosis Slight Microcytosis Mod Sodium Level 143 mmol/L (136-145) Potassium Level 3.9 mmol/L (3.5-5.1) Chloride Level 104 mmol/L (98-107) Carbon Dioxide Level 29 mmol/L (21-32) Anion Gap 10 (6-14) Blood Urea Nitrogen 16 mg/dL (7-20) Creatinine 1.2 mg/dL (0.6-1.0) Estimated GFR (Cockcroft-Gault) 45.1 BUN/Creatinine Ratio 13 (6-20) Glucose Level 98 mg/dL (70-99) Calcium Level 8.8 mg/dL (8.5-10.1) Magnesium Level 2.2 mg/dL (1.8-2.4) Iron Level 21 ug/dL (50-170) Total Iron Binding Capacity 438 ug/dL (250-450) Iron Saturation 5 % (15-34) Total Bilirubin 0.4 mg/dL (0.2-1.0) Aspartate Amino Transf (AST/SGOT) 16 U/L (15-37) Alanine Aminotransferase (ALT/SGPT) 19 U/L (14-59) Alkaline Phosphatase 89 U/L (46-116) Troponin I Quantitative < 0.017 ng/mL (0.000-0.055) RK-Hcj-F-Type Natriuretic Peptide 302 pg/mL (0-124) Total Protein 7.3 g/dL (6.4-8.2) Albumin 3.6 g/dL (3.4-5.0) Albumin/Globulin Ratio 1.0 (1.0-1.7) Triglycerides Level 73 mg/dL (0-150) Cholesterol Level 236 mg/dL (0-200) LDL Cholesterol, Calculated 172 mg/dL (0-100) VLDL Cholesterol, Calculated 15 mg/dL (0-40) Non-HDL Cholesterol Calculated 187 mg/dL (0-129) HDL Cholesterol 49 mg/dL (40-60) Cholesterol/HDL Ratio 4.8 Thyroid Stimulating Hormone (TSH) 50.860 uIU/mL (0.358-3.74) D-Dimer (Madai) 0.59 ug/mlFEU (0.00-0.50) Urine Collection Type Unknown Urine Color Yellow Urine Clarity Clear Urine pH 7.5 (<5.0-8.0) Urine Specific [place] 1.010 (1.000-1.030) Urine Protein Negative mg/dL (NEG-TRACE) Urine Glucose (UA) Negative mg/dL (NEG) Urine Ketones (Stick) Negative mg/dL (NEG) Urine Blood Negative (NEG) Urine Nitrite Negative (NEG) Urine Bilirubin Negative (NEG) Urine Urobilinogen Dipstick 0.2 mg/dL (0.2 mg/dL) Urine Leukocyte Esterase Negative (NEG) Urine RBC 0 /HPF (0-2) Urine WBC 1-4 /HPF (0-4) Urine Squamous Epithelial Cells Mod /LPF Urine Bacteria Few /HPF (0-FEW) Urine Opiates Screen Neg (NEG) Urine Methadone Screen Neg (NEG) Urine Barbiturates Neg (NEG) Urine Phencyclidine Screen Neg (NEG) Urine Amphetamine/Methamphetamine Pos (NEG) Urine Benzodiazepines Screen Neg (NEG) Urine Cocaine Screen Neg (NEG) Urine Cannabinoids Screen Neg (NEG) Urine Ethyl Alcohol Neg (NEG) SARS-CoV-2 RNA (SOPHIA) Negative (Negative) SARS-CoV-2 Antigen (Rapid) Negative (NEGATIVE) Test 02/27/21 08:55 Ferritin 7 ng/mL (8-252) Free Thyroxine 0.60 ng/dL (0.76-1.46) Laboratory Tests Test 02/26/21 15:03 02/26/21 15:49 02/27/21 06:40 02/27/21 07:00 White Blood Count 5.7 x10^3/uL (4.0-11.0) Red Blood Count 4.27 x10^6/uL (3.50-5.40) Hemoglobin 10.1 g/dL (12.0-15.5) Hematocrit 30.7 % (36.0-47.0) Mean Corpuscular Volume 72 fL (79-100) Mean Corpuscular Hemoglobin 24 pg (25-35) Mean Corpuscular Hemoglobin Concent 33 g/dL (31-37) Red Cell Distribution Width 19.7 % (11.5-14.5) Platelet Count 442 x10^3/uL (140-400) Neutrophils (%) (Auto) 69 % (31-73) Lymphocytes (%) (Auto) 17 % (24-48) Monocytes (%) (Auto) 8 % (0-9) Eosinophils (%) (Auto) 6 % (0-3) Basophils (%) (Auto) 1 % (0-3) Neutrophils # (Auto) 3.9 x10^3/uL (1.8-7.7) Lymphocytes # (Auto) 1.0 x10^3/uL (1.0-4.8) Monocytes # (Auto) 0.4 x10^3/uL (0.0-1.1) Eosinophils # (Auto) 0.3 x10^3/uL (0.0-0.7) Basophils # (Auto) 0.1 x10^3/uL (0.0-0.2) Platelet Estimate Increased (ADEQUATE) Hypochromasia Slight Anisocytosis Slight Microcytosis Mod Sodium Level 143 mmol/L (136-145) Potassium Level 3.9 mmol/L (3.5-5.1) Chloride Level 104 mmol/L (98-107) Carbon Dioxide Level 29 mmol/L (21-32) Anion Gap 10 (6-14) Blood Urea Nitrogen 16 mg/dL (7-20) Creatinine 1.2 mg/dL (0.6-1.0) Estimated GFR (Cockcroft-Gault) 45.1 BUN/Creatinine Ratio 13 (6-20) Glucose Level 98 mg/dL (70-99) Calcium Level 8.8 mg/dL (8.5-10.1) Magnesium Level 2.2 mg/dL (1.8-2.4) Iron Level 21 ug/dL (50-170) Total Iron Binding Capacity 438 ug/dL (250-450) Iron Saturation 5 % (15-34) Total Bilirubin 0.4 mg/dL (0.2-1.0) Aspartate Amino Transf (AST/SGOT) 16 U/L (15-37) Alanine Aminotransferase (ALT/SGPT) 19 U/L (14-59) Alkaline Phosphatase 89 U/L (46-116) Troponin I Quantitative < 0.017 ng/mL (0.000-0.055) DZ-Ppr-Z-Type Natriuretic Peptide 302 pg/mL (0-124) Total Protein 7.3 g/dL (6.4-8.2) Albumin 3.6 g/dL (3.4-5.0) Albumin/Globulin Ratio 1.0 (1.0-1.7) Triglycerides Level 73 mg/dL (0-150) Cholesterol Level 236 mg/dL (0-200) LDL Cholesterol, Calculated 172 mg/dL (0-100) VLDL Cholesterol, Calculated 15 mg/dL (0-40) Non-HDL Cholesterol Calculated 187 mg/dL (0-129) HDL Cholesterol 49 mg/dL (40-60) Cholesterol/HDL Ratio 4.8 Thyroid Stimulating Hormone (TSH) 50.860 uIU/mL (0.358-3.74) D-Dimer (Madai) 0.59 ug/mlFEU (0.00-0.50) Urine Collection Type Unknown Urine Color Yellow Urine Clarity Clear Urine pH 7.5 (<5.0-8.0) Urine Specific [place] 1.010 (1.000-1.030) Urine Protein Negative mg/dL (NEG-TRACE) Urine Glucose (UA) Negative mg/dL (NEG) Urine Ketones (Stick) Negative mg/dL (NEG) Urine Blood Negative (NEG) Urine Nitrite Negative (NEG) Urine Bilirubin Negative (NEG) Urine Urobilinogen Dipstick 0.2 mg/dL (0.2 mg/dL) Urine Leukocyte Esterase Negative (NEG) Urine RBC 0 /HPF (0-2) Urine WBC 1-4 /HPF (0-4) Urine Squamous Epithelial Cells Mod /LPF Urine Bacteria Few /HPF (0-FEW) Urine Opiates Screen Neg (NEG) Urine Methadone Screen Neg (NEG) Urine Barbiturates Neg (NEG) Urine Phencyclidine Screen Neg (NEG) Urine Amphetamine/Methamphetamine Pos (NEG) Urine Benzodiazepines Screen Neg (NEG) Urine Cocaine Screen Neg (NEG) Urine Cannabinoids Screen Neg (NEG) Urine Ethyl Alcohol Neg (NEG) SARS-CoV-2 RNA (SOPHIA) Negative (Negative) SARS-CoV-2 Antigen (Rapid) Negative (NEGATIVE) Test 02/27/21 08:55 Ferritin 7 ng/mL (8-252) Free Thyroxine 0.60 ng/dL (0.76-1.46) Images Images CT scan of the head without contrast 02/26/2021 Clinical History: Dizziness for several weeks worsening today Technique: Unenhanced, contiguous, 5 mm axial sections were obtained through the head. One or more of the following individualized dose reduction techniques were utilized for this study: 1. Automated exposure control. 2. Adjustment of the mA and/or kV according to patient size. 3. Use of iterative reconstruction technique. Findings: No previous studies are available for comparison. There is generalized parenchymal atrophy. Areas of decreased attenuation are seen within the periventricular and subcortical white matter of both cerebral hemispheres consistent with areas of small vessel ischemic disease. An old arturo earing area of infarction is seen involving the right occipital lobe. This measures 3.5 cm in size. No acute parenchymal abnormality is seen. No extra- axial fluid collection is noted. No skull fracture is seen. Impression: 1. 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 2. No acute intracranial abnormality is seen. Assessment/Plan Assessment/Plan Impression: Nonspecific dizziness and lightheadedness without bedside evidence of central or peripheral vestibular disease. She also has been more confused. Perhaps she is depressed from her ex-'s . Migraine-associated dizziness is an attractive explanation. She does have an old stroke on the CT scan. Accelerated hypertension Urine drug screen positive for amphetamines, patient denies use Hyperlipidemia, new hypothyroidism, renal insufficiency, elevated D-dimer with negative CT angiogram Recommendations: MRI is mandatory because of the old stroke findings and the need to establish whether there is a central cause of dizziness Citalopram 20 mg daily for treatment of migraine-associated dizziness. I di scussed side effects Rehabilitation modalities Aspirin Further stroke work-up depending on the results of the MRI Thank you for letting me help with the patient's care. JULIANA LYONS MD Feb 27, 2021 14:27
--- NOTE | 2021-02-27 15:20 | PDOC ---
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 Unable to identify what brings them on or improves then. -Denies any past medical history -On arrival to the emergency room notably hypertensive; will try one-time dose of amlodipine to see how patient responds -Chest x-ray normal, head CT showed old infarct, CT chest ruled out pulmonary embolism -Patient does not appear fluid overloaded on exam -Echo ordered, cardiology consulted for evaluation -Urinalysis to evaluate for UTI given episodes of altered mental status and urinary incontinence -DVT prophylaxis -Diet -No home meds to resume History of Present Illness History of Present Illness 65-year-old female presented here today with her daughter with a several month h istory of dizziness. Patient was at her job at [employer] where she has worked for several years when patient's daughter was contacted by the patient's coworkers due to her complaining of feeling dizzy and lightheaded. Family member thought this was one of the first times this occurred however upon discussing with the patient's coworkers the reported she complains of this mult iple times a week for the past 1 to 2 months. Patient reports that the only thing she could pinpoint to her dizziness is that it "might occur when I bend down to pick something up." Other than that she cannot elaborate much else. Patient's coworkers also have noted she will sometimes come to work appearing very unkempt. Patient denies any associated symptoms with the dizziness. She did have 1 urinary incontinence episode a few weeks ago at work. Incidentally around the time patient's symptoms started her ex- suddenly . She reported family members she is not troubled by this. Patient denies any medical history or daily medications but also has not seen a physician in several years. On arrival to emergency room patient notably hypertensive. 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 Labs notable for mild ALESHIA. No troponin elevation, EKG appears normal. 02/27/2021 No acute events since admission. Patient feels somewhat better but continues to be lightheaded. Complains of right foot pain but she is able to bear weight. We will hold off on obtaining any further imaging at this time. Pending brain MRI. Patient's chart, labs, images were reviewed and discussed with RN Vitals/I&O Vitals/I&O: Vital Signs Date Time Temp Pulse Resp B/P (MAP) Pulse Ox O2 Delivery O2 Flow Rate FiO2 02/27/21 08:00 Room Air 02/27/21 07:00 98.3 85 20 145/67 (93) 95 98.3 I & O 02/26/21 02/26/21 02/27/21 15:00 23:00 07:00 Intake Total 180 ml 100 ml Output Total 1150 ml 1000 ml Balance -970 ml -900 ml Physical Exam General: Alert, Cooperative, No acute distress Heart: Regular rate Lungs: Clear Abdomen: Soft Extremities: No edema, Normal pulses Skin: No significant lesion Labs Labs: Laboratory Tests Test 02/26/21 15:49 02/27/21 06:40 02/27/21 07:00 02/27/21 08:55 D-Dimer (Madai) 0.59 ug/mlFEU (0.00-0.50) Urine Collection Type Unknown Urine Color Yellow Urine Clarity Clear Urine pH 7.5 (<5.0-8.0) Urine Specific [place] 1.010 (1.000-1.030) Urine Protein Negative mg/dL (NEG-TRACE) Urine Glucose (UA) Negative mg/dL (NEG) Urine Ketones (Stick) Negative mg/dL (NEG) Urine Blood Negative (NEG) Urine Nitrite Negative (NEG) Urine Bilirubin Negative (NEG) Urine Urobilinogen Dipstick 0.2 mg/dL (0.2 mg/dL) Urine Leukocyte Esterase Negative (NEG) Urine RBC 0 /HPF (0-2) Urine WBC 1-4 /HPF (0-4) Urine Squamous Epithelial Cells Mod /LPF Urine Bacteria Few /HPF (0-FEW) Urine Opiates Screen Neg (NEG) Urine Methadone Screen Neg (NEG) Urine Barbiturates Neg (NEG) Urine Phencyclidine Screen Neg (NEG) Urine Amphetamine/Methamphetamine Pos (NEG) Urine Benzodiazepines Screen Neg (NEG) Urine Cocaine Screen Neg (NEG) Urine Cannabinoids Screen Neg (NEG) Urine Ethyl Alcohol Neg (NEG) SARS-CoV-2 RNA (SOPHIA) Negative (Negative) SARS-CoV-2 Antigen (Rapid) Negative (NEGATIVE) Ferritin 7 ng/mL (8-252) Free Thyroxine 0.60 ng/dL (0.76-1.46) Assessment and Plan Assessmemt and Plan Problems Medical Problems: (1) Dizziness Status: Acute Comment Review of Relevant I have reviewed the following items juan r (where applicable) has been applied. Medications: Current Medications Medications (Trade) Dose Ordered Sig/[place] Route PRN Reason Start Time Stop Time Status Last Admin Dose Admin Iohexol (Omnipaque 350 Mg/ml) 80 ml 1X ONCE IV 02/26/21 17:30 02/26/21 17:31 DC 02/26/21 17:44 Amlodipine Besylate (Norvasc) 5 mg 1X ONCE PO 02/26/21 17:30 02/26/21 17:32 DC 02/26/21 18:24 Senna/Docusate Sodium (Senna Plus) 1 tab BID PO 02/26/21 21:00 02/26/21 21:06 Heparin Sodium (Porcine) (Heparin Sodium) 5,000 unit Q8HRS SQ 02/26/21 22:00 02/27/21 07:15 Levothyroxine Sodium (Synthroid) 112 mcg DAILY06 PO 02/27/21 12:00 02/27/21 12:21 Justifications for Admission Other Justification JACEK CHAPA MD Feb 27, 2021 15:20
[2021-02-27] MEDS: CITALOPRAM 20 MG TABLET. PO SCH (16:21)
--- NOTE | 2021-02-27 16:51 | CARD ---
MR#: [id number] Date of Study: 02/27/2021 Ordering Physician: DANNIE SIMENTAL, Referring Physician: DANNIE SIMENTAL, Tech: Patricia Quinones [facility] APPROVED REPORT EXAM: Two-dimensional and M-mode echocardiogram with Doppler and color Doppler. Other Information Quality : AverageHR: 82bpm Rhythm : NSRNSR INDICATION Abnormal ECG Dyspnea RISK FACTORS Hypertension Obesity Hyperlipidemia Smoking 2D DIMENSIONS RVDd2.5 (2.9-3.5cm)Left Atrium(2D)3.9 (1.6-4.0cm) IVSd1.7 (0.7-1.1cm)Aortic Root(2D)3.1 (2.0-3.7cm) LVDd4.6 (3.9-5.9cm)LVOT Diameter1.7 (1.8-2.4cm) PWd1.3 (0.7-1.1cm)LVDs2.0 (2.5-4.0cm) FS (%) 55.8 %SV85.6 ml Aortic Valve AoV Peak Uday.245.9cm/sAoV VTI45.3cm AO Peak GR.24.2mmHgLVOT Peak Uday.145.5cm/s AO Mean GR.12mmHgAVA (VMAX)1.35cm2 Mitral Valve MV E Psgjzaqs69.2cm/sMV DECEL [id number] MV A Gwsvkdja410.1cm/sE/A Ratio0.7 Pulmonary Valve PV Peak Hrxipnic951.6cm/s Tricuspid Valve TR P. Hneeacqk002cs/sTR Peak Gr.28mmHg Pulmonary Vein S1 Pjdvxoax57.7cm/sD2 Kpsravfa12.8cm/s PVa [id number] LEFT VENTRICLE The left ventricle is normal size. There is normal left ventricular wall thickness. The left ventricu lar systolic function is normal and the ejection fraction is within normal range. Estimated ejection fraction 60-65%. There is normal LV segmental wall motion. Transmitral Doppler flow pattern is Grade I-abnormal relaxation pattern. RIGHT VENTRICLE The right ventricle is normal size. There is normal right ventricular wall thickness. The right ventr icular systolic function is normal. ATRIA The left atrium size is normal. The right atrium size is normal. The interatrial septum is intact wit h no evidence for an atrial septal defect or patent foramen ovale as noted on 2-D or Doppler imaging. AORTIC VALVE The aortic valve is normal in structure and function. Doppler and Color Flow revealed no significant aortic regurgitation. There is no significant aortic valvular stenosis. MITRAL VALVE The mitral valve is normal in structure and function. There is no evidence of mitral valve prolapse. There is no mitral valve stenosis. Doppler and Color Flow revealed trace mitral valve regurgitation. TRICUSPID VALVE The tricuspid valve is normal in structure and function. Doppler and Color Flow revealed trace tricus pid regurgitation. Estimated PAP 30 mmHg. There is no tricuspid valve stenosis. PULMONIC VALVE The pulmonary valve is normal in structure and function. Doppler and Color Flow revealed trace to mil d pulmonic valvular regurgitation. GREAT VESSELS The aortic root is normal in size. The ascending aorta is normal in size. The IVC is normal in size a nd collapses >50% with inspiration. PERICARDIAL EFFUSION There is no evidence of significant pericardial effusion. Critical Notification Critical Value: No <Conclusion> The left ventricle is normal size. The left ventricular systolic function is normal and the ejection fraction is within normal range. Estimated ejection fraction 60-65%. Doppler and Color Flow revealed no significant aortic regurgitation. There is no significant aortic valvular stenosis. Doppler and Color Flow revealed trace mitral valve regurgitation. Doppler and Color Flow revealed trace tricuspid regurgitation. Estimated PAP 30 mmHg. Signed by : Eric Palafox MD Electronically Approved : 02/27/2021 16:51:10
--- NOTE | 2021-02-27 16:56 | RAD ---
EXAMINATION: Magnetic resonance imaging (MRI) of the brain and brainstem without contrast 02/27/2021 2: 46 PM HISTORY: Dizziness, confusion TECHNIQUE: Multiplanar multi-weighted MRI of the brain and brainstem was performed without intravenou s contrast using the general brain protocol. COMPARISON: None available. FINDINGS: The scalp and calvarium are normal. The superior sagittal sinus demonstrates normal venous flow. The corpus callosum is normal in shape and signal intensity. The posterior fossa is unremarkable. The p ituitary and sella are normal. The brainstem and craniocervical junction are unremarkable. Diffusion signal hyperintensity identified within the right occipital lobe with areas of high signal on ADC map suggestive of T2 shine through. No findings to suggest acute or subacute ischemia. There i s a moderate territory of remote ischemic changes identified involving the right occipital lobe with associated encephalomalacia and cortical laminar necrosis with intrinsic T1 signal hyperintensity. Th e susceptibility weighted sequences reveal no evidence of acute or chronic hemorrhage. The ventricles are normal in size and position without evidence of hydrocephalus. The paranasal sinuses are normal. The visualized portions of the mastoids are unremarkable. The orbi ts appear normal. Normal flow voids are demonstrated in the carotid arteries and basilar artery. IMPRESSION: 1. No evidence for acute or subacute ischemia. 2. Remote ischemic changes are identified involving the right occipital lobe with associated encephal omalacia and cortical laminar necrosis. Electronically signed by: Nina Schwartz MD (02/27/2021 4:53 PM) [id number]
[2021-02-27 18:11] VITALS: BP 144/81
[2021-02-27 19:00] VITALS: BP 138/93
[2021-02-27] MEDS ORDERED: ATORVASTATIN CALCIUM 40 MG TABLET. PO SCH (21:00)
[2021-02-27 23:00] VITALS: BP 129/57
[2021-02-28 01:11] LABS: HEMOGLOBIN A1C 5.9 % (4.8-5.6)
[2021-02-28 02:53] VITALS: BP 141/73
[2021-02-28] MEDS: LEVOTHYROXINE 112 MCG TABLET PO SCH (05:37)
[2021-02-28] MEDS: HEPARIN for SUB-Q USE 5,000 UNIT/ML VIAL. SQ SCH ×2 (05:45→14:32)
[2021-02-28 07:00] VITALS: BP 140/65
[2021-02-28] MEDS ORDERED: ASPIRIN ENTERIC COATED 81 MG TABLET.DR. PO SCH (08:00)
--- NOTE | 2021-02-28 08:37 | PDOC ---
PROGRESS NOTES Date of Service DATE: 02/28/21 TIME: 08:31 Assessment Problems Medical Problems: (1) Dizziness Status: Acute Nonspecific dizziness and lightheadedness without bedside evidence of central or peripheral vestibular disease. She also has been more confused. Perhaps she is depressed from her ex-'s . Migraine-associated dizziness is an attractive explanation. Old right occipital lobe infarct. Accelerated hypertension Urine drug screen positive for amphetamines, patient denies use Hyperlipidemia, new hypothyroidism, renal insufficiency, elevated D-dimer with negative CT angiogram Plan Citalopram 20 mg daily for treatment of migraine-associated dizziness. Rehabilitation modalities Aspirin Echo and carotid Doppler Okay for discharge Follow-up with me in 6 weeks Subjective Feels better, not dizzy, wants to go home Objective Vital Signs Date Time Temp Pulse Resp B/P (MAP) Pulse Ox O2 Delivery O2 Flow Rate FiO2 02/28/21 07:00 97.8 78 20 140/65 (90) 97 Room Air 97.8 Intake and Output 02/28/21 07:00 Intake Total 400 ml Balance 400 ml Intake Oral 400 ml PHYSICAL EXAM Alert. Oriented to time, place and person. PERRL. EOMI. No nystagmus provoked CN: no focal findings. Muscle tone: normal. Muscle strength: 5/5 DTR: 2+ Plantar reflex: Flexor Gait: Still a little unsteady, improved from yesterday, really more arthritic than neurologic. Sensory exam: no abnormal findings. No cerebellar signs elicited. Review of Relevant I have reviewed the following items juan r (where applicable) has been applied. Labs Laboratory Tests Test 02/26/21 15:03 02/26/21 15:49 02/27/21 06:40 02/27/21 07:00 White Blood Count 5.7 x10^3/uL (4.0-11.0) Red Blood Count 4.27 x10^6/uL (3.50-5.40) Hemoglobin 10.1 g/dL (12.0-15.5) Hematocrit 30.7 % (36.0-47.0) Mean Corpuscular Volume 72 fL (79-100) Mean Corpuscular Hemoglobin 24 pg (25-35) Mean Corpuscular Hemoglobin Concent 33 g/dL (31-37) Red Cell Distribution Width 19.7 % (11.5-14.5) Platelet Count 442 x10^3/uL (140-400) Neutrophils (%) (Auto) 69 % (31-73) Lymphocytes (%) (Auto) 17 % (24-48) Monocytes (%) (Auto) 8 % (0-9) Eosinophils (%) (Auto) 6 % (0-3) Basophils (%) (Auto) 1 % (0-3) Neutrophils # (Auto) 3.9 x10^3/uL (1.8-7.7) Lymphocytes # (Auto) 1.0 x10^3/uL (1.0-4.8) Monocytes # (Auto) 0.4 x10^3/uL (0.0-1.1) Eosinophils # (Auto) 0.3 x10^3/uL (0.0-0.7) Basophils # (Auto) 0.1 x10^3/uL (0.0-0.2) Platelet Estimate Increased (ADEQUATE) Hypochromasia Slight Anisocytosis Slight Microcytosis Mod Sodium Level 143 mmol/L (136-145) Potassium Level 3.9 mmol/L (3.5-5.1) Chloride Level 104 mmol/L (98-107) Carbon Dioxide Level 29 mmol/L (21-32) Anion Gap 10 (6-14) Blood Urea Nitrogen 16 mg/dL (7-20) Creatinine 1.2 mg/dL (0.6-1.0) Estimated GFR (Cockcroft-Gault) 45.1 BUN/Creatinine Ratio 13 (6-20) Glucose Level 98 mg/dL (70-99) Hemoglobin A1c 5.9 % (4.8-5.6) Calcium Level 8.8 mg/dL (8.5-10.1) Magnesium Level 2.2 mg/dL (1.8-2.4) Iron Level 21 ug/dL (50-170) Total Iron Binding Capacity 438 ug/dL (250-450) Iron Saturation 5 % (15-34) Total Bilirubin 0.4 mg/dL (0.2-1.0) Aspartate Amino Transf (AST/SGOT) 16 U/L (15-37) Alanine Aminotransferase (ALT/SGPT) 19 U/L (14-59) Alkaline Phosphatase 89 U/L (46-116) Troponin I Quantitative < 0.017 ng/mL (0.000-0.055) HX-Ivn-L-Type Natriuretic Peptide 302 pg/mL (0-124) Total Protein 7.3 g/dL (6.4-8.2) Albumin 3.6 g/dL (3.4-5.0) Albumin/Globulin Ratio 1.0 (1.0-1.7) Triglycerides Level 73 mg/dL (0-150) Cholesterol Level 236 mg/dL (0-200) LDL Cholesterol, Calculated 172 mg/dL (0-100) VLDL Cholesterol, Calculated 15 mg/dL (0-40) Non-HDL Cholesterol Calculated 187 mg/dL (0-129) HDL Cholesterol 49 mg/dL (40-60) Cholesterol/HDL Ratio 4.8 Thyroid Stimulating Hormone (TSH) 50.860 uIU/mL (0.358-3.74) D-Dimer (Madai) 0.59 ug/mlFEU (0.00-0.50) Urine Collection Type Unknown Urine Color Yellow Urine Clarity Clear Urine pH 7.5 (<5.0-8.0) Urine Specific [place] 1.010 (1.000-1.030) Urine Protein Negative mg/dL (NEG-TRACE) Urine Glucose (UA) Negative mg/dL (NEG) Urine Ketones (Stick) Negative mg/dL (NEG) Urine Blood Negative (NEG) Urine Nitrite Negative (NEG) Urine Bilirubin Negative (NEG) Urine Urobilinogen Dipstick 0.2 mg/dL (0.2 mg/dL) Urine Leukocyte Esterase Negative (NEG) Urine RBC 0 /HPF (0-2) Urine WBC 1-4 /HPF (0-4) Urine Squamous Epithelial Cells Mod /LPF Urine Bacteria Few /HPF (0-FEW) Urine Opiates Screen Neg (NEG) Urine Methadone Screen Neg (NEG) Urine Barbiturates Neg (NEG) Urine Phencyclidine Screen Neg (NEG) Urine Amphetamine/Methamphetamine Pos (NEG) Urine Benzodiazepines Screen Neg (NEG) Urine Cocaine Screen Neg (NEG) Urine Cannabinoids Screen Neg (NEG) Urine Ethyl Alcohol Neg (NEG) SARS-CoV-2 RNA (SOPHIA) Negative (Negative) SARS-CoV-2 Antigen (Rapid) Negative (NEGATIVE) Test 02/27/21 08:55 Ferritin 7 ng/mL (8-252) Free Thyroxine 0.60 ng/dL (0.76-1.46) Laboratory Tests Test 02/27/21 08:55 Ferritin 7 ng/mL (8-252) Free Thyroxine 0.60 ng/dL (0.76-1.46) Medications Current Medications Sodium Chloride 1,000 ml @ 1,000 mls/hr 1X ONCE IV Last administered on 02/26/21at 15:11; Start 02/26/21 at 15:00; Stop 02/26/21 at 15:59; Status DC Iohexol (Omnipaque 350 Mg/ml) 80 ml 1X ONCE IV Last administered on 02/26/21at 17:44; Start 02/26/21 at 17:30; Stop 02/26/21 at 17:31; Status DC Amlodipine Besylate (Norvasc) 5 mg 1X ONCE PO Last administered on 02/26/21at 18:24; Start 02/26/21 at 17:30; Stop 02/26/21 at 17:32; Status DC Acetaminophen (Tylenol) 650 mg PRN Q4HRS PRN PO FEVER > 100.3'F; Start 02/26/21 at 17:45; Stop 02/27/21 at 17:44; Status DC Ondansetron HCl (Zofran) 4 mg PRN Q6HRS PRN IVP NAUSEA/VOMITING; Start 02/26/21 at 18:00 Calcium Carbonate/ Glycine (Tums) 500 mg PRN Q3HRS PRN PO UPSET STOMACH; Start 02/26/21 at 18:00 Zolpidem Tartrate (Ambien) 5 mg PRN QHS PRN PO INSOMNIA, MAY REPEAT IN 1HR; Start 02/26/21 at 18:00 Info (Non-Icu Electrolyte Protocol) 1 ea PRN DAILY PRN MC SEE COMMENTS; Start 02/26/21 at 18:00 Oxycodone/ Acetaminophen (Percocet 5/325) 1 tab PRN Q4HRS PRN PO MILD PAIN, 1ST CHOICE; Start 02/26/21 at 18:00 Oxycodone/ Acetaminophen (Percocet 5/325) 2 tab PRN Q4HRS PRN PO MODERATE PAIN, SEVERE PAIN; Start 02/26/21 at 18:00 Acetaminophen (Tylenol) 650 mg PRN Q6HRS PRN PO Headaches, Temp > 101.5F; Start 02/26/21 at 18:00 Senna/Docusate Sodium (Senna Plus) 1 tab BID PO Last administered on 02/27/21at 22:36; Start 02/26/21 at 21:00 Heparin Sodium (Porcine) (Heparin Sodium) 5,000 unit Q8HRS SQ Last administered on 02/28/21at 05:45; Start 02/26/21 at 22:00 Perflutren Protein Type A Microsphe (Optison) 0.66 mg STK-MED ONCE IV ; Start 02/27/21 at 07:44; Stop 02/27/21 at 07:44; Status DC Levothyroxine Sodium (Synthroid) 112 mcg DAILY06 PO Last administered on 02/28/21at 05:37; Start 02/27/21 at 12:00 Amlodipine Besylate (Norvasc) 5 mg DAILY PO Last administered on 02/27/21at 16:21; Start 02/27/21 at 14:00 Atorvastatin Calcium (Lipitor) 40 mg QHS PO Last administered on 02/27/21at 22:36; Start 02/27/21 at 21:00 Aspirin (Ecotrin) 81 mg DAILYWBKFT PO ; Start 02/28/21 at 08:00 Hydralazine HCl (Apresoline Inj) 10 mg PRN Q4HRS PRN IVP ELEVATED BP, SEE COMMENTS; Start 02/27/21 at 13:45 Citalopram Hydrobromide (CeleXA) 20 mg DAILY PO Last administered on 02/27/21at 16:21; Start 02/27/21 at 14:30 Active Scripts Active Reported No Known Medications Prior To Admisstion (Info) Each 1 Each Vitals/I & O Vital Sign - Last 24 Hours 02/27/21 02/27/21 02/27/21 02/27/21 13:33 16:17 16:21 18:11 Temp 98.1 98.1 Pulse 75 80 81 76 Resp 18 B/P (MAP) 134/62 (86) 134/62 (86) 134/62 144/81 (102) Pulse Ox 95 95 97 O2 Delivery Room Air Room Air Room Air 02/27/21 02/27/21 02/27/21 02/28/21 19:00 20:00 23:00 02:53 Temp 98.3 97.9 98.0 98.3 97.9 98.0 Pulse 68 79 79 Resp 18 16 18 B/P (MAP) 138/93 (108) 129/57 (81) 141/73 (95) Pulse Ox 97 95 95 O2 Delivery Room Air Room Air Room Air Room Air 02/28/21 07:00 Temp 97.8 97.8 Pulse 78 Resp 20 B/P (MAP) 140/65 (90) Pulse Ox 97 O2 Delivery Room Air Intake and Output 02/27/21 02/27/21 02/28/21 15:00 23:00 07:00 Intake Total 100 ml 200 ml 100 ml Balance 100 ml 200 ml 100 ml Images Magnetic resonance imaging (MRI) of the brain and brainstem without contrast 02/27/2021 2:46 PM The scalp and calvarium are normal. The superior sagittal sinus demonstrates normal venous flow. The corpus callosum is normal in shape and signal intensity. The posterior fossa is unremarkable. The pituitary and sella are normal. The brainstem and craniocervical junction are unremarkable. Diffusion signal hyperintensity identified within the right occipital lobe with areas of high signal on ADC map suggestive of T2 shine through. No findings to suggest acute or subacute ischemia. There is a moderate territory of remote ischemic changes identified involving the right occipital lobe with associated encephalomalacia and cortical laminar necrosis with intrinsic T1 signal hyperintensity. The susceptibility weighted sequences reveal no evidence of acute or chronic hemorrhage. The ventricles are normal in size and position without evidence of hydrocephalus. The paranasal sinuses are normal. The visualized portions of the mastoids are unremarkable. The orbits appear normal. Normal flow voids are demonstrated in the carotid arteries and basilar artery. IMPRESSION: 1. No evidence for acute or subacute ischemia. 2. Remote ischemic changes are identified involving the right occipital lobe with associated encephalomalacia and cortical laminar necrosis. Justicifation of Admission Dx: Justifications for Admission: Justification of Admission Dx: N/A JULIANA LYONS MD Feb 28, 2021 08:37
[2021-02-28] MEDS: SENNOSIDES/DOCUSATE 8.6/50MG TABLET. PO SCH (09:00)
[2021-02-28] MEDS: CITALOPRAM 20 MG TABLET. PO SCH (09:22)
[2021-02-28 10:59] VITALS: BP 108/72
--- NOTE | 2021-02-28 11:14 | PDOC ---
NICOL CARCAMO APRN 02/28/21 1114: CARDIO Progress Notes Date and Time Date of Service 02/28/2021 Time of Evaluation 1100 Subjective Subjective: No Chest Pain, No shortness of breath, No Palpitations Vitals Vitals Vital Signs Date Time Temp Pulse Resp B/P (MAP) Pulse Ox O2 Delivery O2 Flow Rate FiO2 02/28/21 10:59 98.0 78 20 108/72 (84) 95 Room Air 98.0 Weight Weight [ ] Input and Output Intake and Output Intake and Output 02/28/21 07:00 Intake Total 400 ml Balance 400 ml Intake Oral 400 ml Physical Exam HEENT: Neck Supple W Full Motion Chest: Symmetric LUNGS: Clear to Auscultation Heart: S1S2, RRR (SR) Abdomen: Soft N/T Extremities: No Edema, No Calf Tenderness Neurology: alert, oriented, follow commands Assessment Assessment 1. Presyncope: #4 is a contributing issue. No arrhythmias. Low suspicion for arrhythmia 2. Accelerated hypertension; controlled EF and WM nml per TTE 3. Hyperlipidemia; LDL 172 4. Hypothyroidism; TSH 50. new finding 5. Suspect CKD3 6. PUI: Rapid negative. PCR pending. Fully vaccinated 7. UDS + methamphetamines; denies use. No home meds 8. Tobaccoism; discussed/encouraged cessation 9. Elevated d-dimer; chest CTA negative for PE 10. Old right occipital lobe infarct. 11. Fe def anemia: per PCP Recommendations Start secondary prevention; ASA/statin therapy Continue norvasc No further cardiac workup Justicifation of Admission Dx: Justifications for Admission: Justification of Admission Dx: N/A RAND HALL MD 02/28/21 1723: NICOL CARCAMO APRN Feb 28, 2021 11:14 RAND HALL MD Feb 28, 2021 17:23
[2021-02-28] MEDS ORDERED: ATOR40TA59 PO (12:28)
[2021-02-28] MEDS ORDERED: AMLO-186 PO (12:28)
[2021-02-28] MEDS ORDERED: LEVO112T49 PO (12:28)
[2021-02-28] MEDS ORDERED: CITA20TA9 PO (12:28)
[2021-02-28] MEDS ORDERED: ASPI-886 PO (12:28)
--- NOTE | 2021-02-28 12:31 | PDOC3 ---
[facility]-Discharge Summary Date of Admission: Date of Admission: Feb 26, 2021 Date of Discharge: Date of Discharge: Feb 28, 2021 Admission Diagnosis: Problems: (1) Dizziness (2) High blood pressure Discharge Diagnosis: Discharge Diagnosis: Same Consults: Consults: Cardiology and neurology Procedures: Procedures: Normal MRI brain. Normal echo Hospital Course: Hospital Course: 65-year-old female presented here today with her daughter with a several month history of dizziness. Patient was at her job at [employer] where she has worked for several years when patient's daughter was contacted by the patient's coworkers due to her complaining of feeling dizzy and lightheaded. Family member thought this was one of the first times this occurred however upon discussing with the patient's coworkers the reported she complains of this multiple times a week for the past 1 to 2 months. Patient reports that the only thing she could pinpoint to her dizziness is that it "might occur when I bend down to pick something up." Other than that she cannot elaborate much else. Patient's coworkers also have noted she will sometimes come to work appearing very unkempt. Patient denies any associated symptoms with the dizziness. She did have 1 urinary incontinence episode a few weeks ago at work. Incidentally around the time patient's symptoms started her ex- suddenly . She reported family members she is not troubled by this. Patient denies any medical history or daily medications but also has not seen a physician in several years. On arrival to emergency room patient notably hypertensive. 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 Labs notable for mild ALESHIA. No troponin elevation, EKG appears normal. 02/27/2021 No acute events since admission. Patient feels somewhat better but continues to be lightheaded. Complains of right foot pain but she is able to bear weight. We will hold off on obtaining any further imaging at this time. Pending brain MRI. Patient's chart, labs, images were reviewed and discussed with RN 02/28 Patient evaluated bedside no complaints. On citalopram by neurology. Started on aspirin, Lipitor started by cardiology. Continue Synthroid. Get labs checked at PCP with in a few weeks. Disposition: Disposition/Orders: D/C to Home Activity: Activity: Resume previous activity Diet: Diet: Regular Medications: Home Meds Active Scripts Levothyroxine Sodium (LEVOTHYROXINE SODIUM) 112 Mcg Tablet, 112 MCG PO DAILY06 for hypothyroid for 60 Days, #60 TAB Prov:DANNIE SIMENTAL MD 02/28/21 Citalopram Hydrobromide (CELEXA) 20 Mg Tablet, 20 MG PO DAILY for dizziness for 90 Days, #90 TAB Prov:DANNIE SIMENTAL MD 02/28/21 Aspirin (ASPIRIN EC) 81 Mg Tablet.dr, 81 MG PO DAILYWBKFT for stroke prevention for 90 Days, #90 TAB.SR Prov:DANNIE SIMENTAL MD 02/28/21 Amlodipine Besylate (AMLODIPINE BESYLATE) 5 Mg Tablet, 5 MG PO DAILY for htn for 90 Days, #90 TAB Prov:DANNIE SIMENTAL MD 02/28/21 Atorvastatin Calcium (ATORVASTATIN CALCIUM) 40 Mg Tablet, 40 MG PO QHS for stroke prevention for 90 Days, #90 TAB Prov:DANNIE SIMENTAL MD 02/28/21 Discontinued Reported Medications Info (NO KNOWN MEDICATIONS PRIOR TO ADMISSTION) Each, 1 EACH MC for , EACH 02/26/21 Scheduled Amlodipine Besylate (Amlodipine Besylate), 5 MG PO DAILY Aspirin (Aspirin Ec), 81 MG PO DAILYWBKFT Atorvastatin Calcium (Atorvastatin Calcium), 40 MG PO QHS Citalopram Hydrobromide (Celexa), 20 MG PO DAILY Levothyroxine Sodium (Levothyroxine Sodium), 112 MCG PO DAILY06 Discontinued Medications Info (No Known Medications Prior To Admisstion), 1 EACH MC , (Reported) Justicifation of Admission Dx: Justifications for Admission: Justification of Admission Dx: N/A DANNIE SIMENTAL MD Feb 28, 2021 12:31
--- NOTE | 2021-02-28 12:49 | RAD ---
EXAM: Bilateral carotid duplex with waveform analysis. CLINICAL HISTORY: Stroke. TECHNIQUE: Longitudinal and transverse sonographic images of the bilateral carotid arteries was perfo rmed utilizing grayscale, color and spectral Doppler techniques. COMPARISON: None FINDINGS: Internal carotid arteries are tortuous bilaterally, mildly limiting the exam. There is plaque in the carotid bulbs and proximal internal and external carotid arteries. Vertebral artery flow is antegrade bilaterally. Right: PSV CCA (cm/s): 87 PSV ICA (cm/s): 158 EDV ICA (cm/s): 30 PSV ECA (cm/s): 180 ICA/CCA Ratio: 1.8 Left: PSV CCA (cm/s): 98 PSV ICA (cm/s): 135 EDV ICA (cm/s): 39 PSV ECA (cm/s): 206 ICA/CCA Ratio: 1.6 IMPRESSION: 1. 50-69 percent stenosis of the internal carotid arteries bilaterally. 2. Mildly elevated velocities in the external carotid arteries bilaterally. Consensus Panel Lerma-scale and Doppler US Criteria for Diagnosis of ICA Stenosis Degree of Stenosis (%) ICA PSV (Cm/sec) Plaque Estimate (%)* Normal <125 None <50 <125 <50 50-69 125-230 >50 >70 but < near occlusion >230 >50 Near occlusion High, low, or undetectable Visible Total occlusion Undetectable Visible, no detectable lumen *Plaque estimate (diameter reduction) with lerma-scale and color Doppler US Degree of Stenosis (%) ICA/CCA PSV Ratio ICA EDV (cm/sec) Normal <2.0 <40 <50 <2.0 <40 50-69 2.0-4.0 40-100 >70 but < near occlusion >4.0 >100 Near occlusion Variable Variable Total occlusion Not applicable Not applicable Electronically signed by: Elsie Yang MD (02/28/2021 12:47 PM) [id number]
[2021-02-28 15:11] VITALS: BP 112/68
--- NOTE | 2021-02-28 16:29 | NUR ---
SW following. Discussed with RN, pt from home, room air, cardiac diet, COVID-19 negative. Discharge order for home with self care. RN advised no SW needs.
--- NOTE | 2021-02-28 16:50 | NUR ---
Discharge Note: REYES ZAMBRAON Discharge instructions and discharge home medications reviewed with Patient and a copy given. All questions have been answered and understanding verbalized. The following instructions and handouts were given: Follow up with her PCP and Dr. Spring Discontinued IV line and telemetry. Patient discharged to Home with Self-Care.
--- NOTE | 2021-03-08 09:28 | NUR ---
Late entry: NS started on 02/26 W 1511 completed @ 1600.
== END 2021-02-28 16:50 | disposition home or self-care (01) ==
LOC: ER 14:32 → ED HOLD 17:00 → 5 SOUTH 18:30
PROVIDERS: ADMIT Student in an Organized Health Care Education/Training Program; ATTEND Student in an Organized Health Care Education/Training Program
DX: R42 Dizziness and giddiness (principal); Z20.822 Contact with and (suspected) exposure to COVID-19; R32 Unspecified urinary incontinence; I10 Essential (primary) hypertension; F17.200 Nicotine dependence, unspecified, uncomplicated; D50.9 Iron deficiency anemia, unspecified; E03.9 Hypothyroidism, unspecified; E78.5 Hyperlipidemia, unspecified; F12.90 Cannabis use, unspecified, uncomplicated; G43.909 Migraine, unspecified, not intractable, without status migrainosus; N17.9 Acute kidney failure, unspecified; Z83.3 Family history of diabetes mellitus; Z82.49 Family history of ischemic heart disease and other diseases of the circulatory system; Z86.73 Personal history of transient ischemic attack (TIA), and cerebral infarction without residual deficits
CPT/HCPCS: 36415; 70450; 70551; 71045; 71275; 80053; 80061; 80307; 81001; 82728; 83036; 83540; 83550; 83735; 83880; 84439; 84443; 84484; 85025; 85379; 87426; 93005; 93306; 93880; 96360; 96372; 97110; 97161; 97165; 97535; 99285; G0378; J1644; J7030; Q9956; Q9967; U0003; U0005; G0379